=== PATIENT | male | born 1995 | race Hispanic/Latino ===

== ENCOUNTER 2019-07-13 14:12 | Emergency (ER) | payer SELFPAY ==
[2019-07-13] MEDS ORDERED: SODIUM CHLORIDE 0.9% 1000 ML 1,000 ML IV ONE (15:34)
[2019-07-13] MEDS ORDERED: NALOXONE 0.4 MG/1 ML INJ IV ONE (15:34)
[2019-07-13] MEDS ORDERED: ONDANSETRON 4 MG/2 ML INJ IV ONE (15:34)
--- NOTE | 2019-07-13 15:40 | Emergency Department Report ---
History of Present Illness - General Chief Complaint: Overdose Stated Complaint: OVERDOSE Time Seen by Provider: 07/13/19 15:30 Source: EMS Mode of arrival: Stretcher Limitations: No Limitations - History of Present Illness Initial Comments: Patient is 24-year-old male with history of substance abuse. Patient presented to the ER via EMS after family called stating that he became more drowsy. Patient admitted that he took heroin last night. Patient given Narcan by EMS and patient started waking up and answering questions appropriately. In the [facility] room patient still drowsy but is able to answer all questions appropriately. Pupils are pinpoint. Patient given another dose of Narcan and started on Narcan drip. Patient denied any suicidal ideation or suicidal attempt. He denied any visual or auditory hallucination. He stated that he j ust wanted to get high and he probably took extra dose. Patient immediately counseled about drug abuse. MD Complaint: accidental overdose -: This morning Intent: other (Want to get high) How Overdose Was Discovered: family/friend present Context: Accidental Overdose: wanted to get high Treatments Prior to Arrival: none - Related Data Allergies Allergy/AdvReac Type Severity Reaction Status Date / Time No Known Allergies Allergy Unverified 07/13/19 15:48 ED Review of Systems ROS: Stated complaint: OVERDOSE Other details as noted in HPI Comment: All other systems reviewed and negative Constitutional: denies: chills, fever Respiratory: denies: cough, shortness of breath Cardiovascular: denies: chest pain Gastrointestinal: denies: abdominal pain, nausea Musculoskeletal: denies: back pain ED Past Medical Hx - Social History Smoking Status: Current Every Day Smoker Substance Use Type: Alcohol ED Physical Exam - General Limitations: No Limitations General appearance: in no apparent distress, appears intoxicated, obtunded - Head Head exam: Present: atraumatic, normocephalic, normal inspection - Eye Eye exam: Present: normal appearance Pupils: Present: other (Pinpoint.) - ENT ENT exam: Present: normal exam, normal orophraynx, mucous membranes moist - Neck Neck exam: Present: normal inspection, full ROM. Absent: tenderness, meningismu s, lymphadenopathy, thyromegaly - Respiratory Respiratory exam: Present: normal lung sounds bilaterally - Cardiovascular Cardiovascular Exam: Present: regular rate, normal rhythm, normal heart sounds - GI/Abdominal GI/Abdominal exam: Present: soft, normal bowel sounds. Absent: distended, tenderness, guarding, rebound, rigid, organomegaly, mass, bruit, pulsatile mass, hernia - Extremities Exam Extremities exam: Present: normal inspection, full ROM, normal capillary refill. Absent: tenderness, pedal edema, calf tenderness - Back Exam Back exam: Present: normal inspection, full ROM. Absent: CVA tenderness (R), CVA tenderness (L), muscle spasm, paraspinal tenderness, vertebral tenderness - Neurological Exam Neurological exam: Present: alert, oriented X3, CN II-XII intact, normal gait, reflexes normal. Absent: motor sensory deficit - Psychiatric Psychiatric exam: Present: normal mood - Skin Skin exam: Present: warm, intact, normal color ED Course Vital Signs 07/13/19 07/13/19 07/13/19 15:00 15:16 15:20 Temperature 98.9 F Pulse Rate 70 Respiratory 10 L Rate Blood Pressure 109/62 109/62 Blood Pressure [Left] O2 Sat by Pulse 90 92 94 Oximetry 07/13/19 07/13/19 07/13/19 15:30 15:34 15:46 Temperature Pulse Rate Respiratory Rate Blood Pressure 120/69 120/69 Blood Pressure [Left] O2 Sat by Pulse 96 95 96 Oximetry 07/13/19 07/13/19 07/13/19 16:00 19:09 19:16 Temperature Pulse Rate Respiratory Rate Blood Pressure 115/67 129/63 129/63 Blood Pressure [Left] O2 Sat by Pulse 95 92 Oximetry 07/13/19 07/13/19 19:30 20:00 Temperature 98.2 F Pulse Rate 85 Respiratory 16 Rate Blood Pressure 115/67 Blood Pressure 129/85 [Left] O2 Sat by Pulse 92 100 Oximetry ED Medical Decision Making - Lab Data Result diagrams: 07/13/19 15:45 07/13/19 15:45 - Medical Decision Making Patient is 24-year-old male with history of substance abuse. Patient presented to the ER via EMS after family called stating that he became more drowsy. Patient admitted that he took heroin last night. Patient given Narcan by EMS and patient started waking up and answering questions appropriately. In the emergency room patient still drowsy but is able to answer all questions appropriately. Pupils are pinpoint. Patient given another dose of Narcan and started on Narcan drip. Patient denied any suicidal ideation or suicidal attempt. He denied any visual or auditory hallucination. He stated that he just wanted to get high and he probably took extra dose. Patient immediately counseled about drug abuse. Patient has been observed in the emergency room for approximately 2 hours after Narcan drip discontinued. Patient remained alert, oriented x3 and stated that he is ready to go home. Patient is calling his mother to pick him up. Critical care attestation.: If time is entered above; I have spent that time in minutes in the direct care of this critically ill patient, excluding procedure time. ED Disposition Clinical Impression: Accidental drug overdose, Heroin abuse Disposition: DC-01 TO HOME OR SELFCARE Is pt being admited?: No Condition: Stable Instructions: Narcotic Abuse (ED) Referrals: PRIMARY CARE, [Primary Care Provider] - 3-5 Days
[2019-07-13] MEDS ORDERED: NALOXONE 2 MG/2 ML 2 MG in SODIUM CHLORIDE 0.9% 500 ML 500 ML IV ONE (15:41)
[2019-07-13 16:07] LABS: Basophils # (Auto) 0.1 K/mm3 (0.0-0.1); Basophils % (Auto) 0.9 % (0.0-1.8); Eosinophils # (Auto) 0.6 K/mm3 (0.0-0.4); Eosinophils % (Auto) 5.3 % (0.0-4.3); Hematocrit 40.9 % (35.5-45.6); Hemoglobin 13.5 gm/dl (11.8-15.2); Lymphocytes # (Auto) 1.8 K/mm3 (1.2-5.4); Lymphocytes % (Auto) 16.3 % (13.4-35.0); Mean Corpuscular HGB Conc 33 % (32-34); Mean Corpuscular Volume 81 fl (84-94); Monocytes % (Auto) 9.4 % (0.0-7.3); Platelet Count 236 K/mm3 (140-440); Red Blood Count 5.03 M/mm3 (3.65-5.03); Red Cell Distribution Width 13.7 % (13.2-15.2)
[2019-07-13 16:28] LABS: Alanine Aminotransferase 45 units/L (7-56); Albumin 3.5 g/dL (3.9-5); BUN/Creatinine Ratio 11; Blood Urea Nitrogen 8 mg/dL (9-20); Calcium 8.4 mg/dL (8.4-10.2); Hemolysis Index 5
[2019-07-13] MEDS ORDERED: diphenhydrAMINE 50 MG/ML VIAL IV PRN (20:04)
[2019-07-13 20:20] LABS: Amphetamine Screen,Urine PRESUMPTIVE NEGATIVE; Benzodiazepines Screen,Urine PRESUMPTIVE NEGATIVE; Cannabinoid Screen,Urine PRESUMPTIVE NEGATIVE; Cocaine Screen,Urine PRESUMPTIVE NEGATIVE; Methadone Screen,Urine PRESUMPTIVE NEGATIVE
[2019-07-13 20:26] LABS: Bilirubin,Urine NEG (Negative); Blood,Urine NEG (Negative); Color,Urine Yellow (Yellow); Hyaline Casts,Urine 1 /LPF; Protein,Urine <15 mg/dL mg/dL (Negative); Urobilinogen,Urine < 2.0 mg/dL (<2.0)
[2019-07-13 20:31] LABS: Opiate Screen,Urine PRESUMPTIVE POSITIVE
[2019-07-13 21:52] VITALS: BP 122/71
== END 2019-07-13 22:39 | disposition home or self-care (01) ==
LOC: ED 14:12
DX: T65.91XA Toxic effect of unspecified substance, accidental (unintentional), initial encounter (principal); F15.10 Other stimulant abuse, uncomplicated; F17.200 Nicotine dependence, unspecified, uncomplicated; Y92.89 Other specified places as the place of occurrence of the external cause
CPT/HCPCS: 36415; 80053; 80307; 81001; 85025; 96365; 96375; 99284; J2310; J2405; J7030; J7040; 80320; G0480

== ENCOUNTER 2020-03-27 21:01 | Emergency (ER) | payer SELFPAY ==
--- NOTE | 2020-03-27 22:45 | XRay Report ---
CHEST 2 VIEWS INDICATION: left chestpain. COMPARISON: None FINDINGS: SUPPORT DEVICES: None. HEART: Within normal limits. LUNGS/PLEURA: Minimal hazy bibasilar airspace opacities with otherwise clear lungs. No effusion. No pneumothorax. ADDITIONAL FINDINGS: None. IMPRESSION: 1. Pulmonary findings as above. Signer Name: Jose R Pritchard MD Signed: 03/27/2020 10:41 PM Workstation Name: [id number]
[2020-03-28 00:14] LABS: Basophils # (Auto) 0.2 K/mm3 (0.0-0.1); Basophils % (Auto) 1.3 % (0.0-1.8); Eosinophils # (Auto) 0.9 K/mm3 (0.0-0.4); Eosinophils % (Auto) 7.4 % (0.0-4.3); Hematocrit 39.7 % (35.5-45.6); Hemoglobin 12.8 gm/dl (11.8-15.2); Lymphocytes # (Auto) 1.9 K/mm3 (1.2-5.4); Lymphocytes % (Auto) 15.8 % (13.4-35.0); Mean Corpuscular HGB Conc 32 % (32-34); Mean Corpuscular Volume 77 fl (84-94); Monocytes # (Auto) 0.9 K/mm3 (0.0-0.8); Monocytes % (Auto) 7.2 % (0.0-7.3); Platelet Count 329 K/mm3 (140-440); Red Blood Count 5.19 M/mm3 (3.65-5.03); Red Cell Distribution Width 13.4 % (13.2-15.2)
[2020-03-28 00:29] LABS: Alanine Aminotransferase 15 units/L (7-56); Albumin 3.7 g/dL (3.9-5); Blood Urea Nitrogen 5 mg/dL (9-20); Calcium 8.8 mg/dL (8.4-10.2); Hemolysis Index 2
[2020-03-28 00:34] LABS: BUN/Creatinine Ratio 7
[2020-03-28] MEDS ORDERED: cefTRIAXone/NS 1 GM/50 ML 1 GM/50 ML BAG IV ONE (04:12)
--- NOTE | 2020-03-28 04:22 | Emergency Department Report ---
ED General Adult HPI - General Chief complaint: Chest Pain Stated complaint: CHEST PAIN/COLD SX/DRUG ADDICTION/REHAB Time Seen by Provider: 03/28/20 04:05 Source: patient Mode of arrival: Ambulatory Limitations: No Limitations - History of Present Illness Initial comments: 25-year-old male patient presents with complaints of cough x2 to 3 weeks, now worsening with left-sided pain in his chest with coughing x1 week. He denies any hemoptysis or sputum production. Patient admits to being a smoker. No past medical history per patient. He denies any fever/chills/sweats, loss of taste/smell, nausea/vomiting/diarrhea/abdominal pain, or leg pain/swelling. He does admit to mild shortness of breath. Patient also requesting outpatient resources for heroin detox. - Related Data Previous Rx's Medication Instructions Recorded Last Taken Type Amoxicillin [Trimox CAP] 1,000 mg PO Q8H 10 Days #60 capsule 03/28/20 Unknown Rx Azithromycin [Zithromax Z-CHUY] 0 mg PO DAILY #6 tab 03/28/20 Unknown Rx Allergies Allergy/AdvReac Type Severity Reaction Status Date / Time No Known Allergies Allergy Unverified 07/13/19 15:48 ED Review of Systems ROS: Stated complaint: CHEST PAIN/COLD SX/DRUG ADDICTION/REHAB Other details as noted in HPI Constitutional: denies: chills, fever, malaise Respiratory: cough, shortness of breath Cardiovascular: as per HPI. denies: edema, syncope Endocrine: denies: excessive sweating Gastrointestinal: denies: abdominal pain, nausea Neurological: denies: headache Hematological/Lymphatic: denies: swollen glands ED Past Medical Hx - Past Medical History Previous Medical History?: Yes Additional medical history: GOUT - Surgical History Past Surgical History?: No - Social History Smoking Status: Former Smoker Substance Use Type: Heroin - Medications Home Medications: Home Medications Medication Instructions Recorded Confirmed Last Taken Type Amoxicillin [Trimox CAP] 1,000 mg PO Q8H 10 Days #60 capsule 03/28/20 Unknown Rx Azithromycin [Zithromax Z-CHUY] 0 mg PO DAILY #6 tab 03/28/20 Unknown Rx ED Physical Exam - General Limitations: No Limitations General appearance: alert, in no apparent distress - Head Head exam: Present: atraumatic, normocephalic - Eye Eye exam: Present: normal appearance. Absent: scleral icterus - Neck Neck exam: Present: normal inspection - Respiratory Respiratory exam: Present: wheezes, rhonchi. Absent: rales, stridor - Cardiovascular Cardiovascular Exam: Present: regular rate, normal rhythm. Absent: systolic murmur, diastolic murmur, rubs, gallop - GI/Abdominal GI/Abdominal exam: Present: soft. Absent: tenderness - Neurological Exam Neurological exam: Present: alert, oriented X3, normal gait - Psychiatric Psychiatric exam: Present: normal affect, normal mood - Skin Skin exam: Present: warm, dry, intact, normal color. Absent: rash, cyanosis, diaphoretic, pallor, ecchymosis ED Course Vital Signs 03/27/20 21:53 Temperature 98.6 F Pulse Rate 106 H Respiratory 20 Rate Blood Pressure 121/61 O2 Sat by Pulse 95 Oximetry ED Medical Decision Making - Lab Data Result diagrams: 03/27/20 23:46 03/27/20 23:46 Lab Results 03/27/20 03/27/20 03/27/20 Range/Units 23:46 23:46 23:46 WBC 11.9 H (4.5-11.0) K/mm3 RBC 5.19 H (3.65-5.03) M/mm3 Hgb 12.8 (11.8-15.2) gm/dl Hct 39.7 (35.5-45.6) % MCV 77 L (84-94) fl MCH 25 L (28-32) pg MCHC 32 (32-34) % RDW 13.4 (13.2-15.2) % Plt Count 329 (140-440) K/mm3 Lymph % (Auto) 15.8 (13.4-35.0) % Heard % (Auto) 7.2 (0.0-7.3) % Eos % (Auto) 7.4 H (0.0-4.3) % Baso % (Auto) 1.3 (0.0-1.8) % Lymph # (Auto) 1.9 (1.2-5.4) K/mm3 Heard # (Auto) 0.9 H (0.0-0.8) K/mm3 Eos # (Auto) 0.9 H (0.0-0.4) K/mm3 Baso # (Auto) 0.2 H (0.0-0.1) K/mm3 Seg Neutrophils % 68.3 (40.0-70.0) % Seg Neutrophils # 8.1 H (1.8-7.7) K/mm3 Sodium 137 (137-145) mmol/L Potassium 3.9 (3.6-5.0) mmol/L Chloride 99.3 (98-107) mmol/L Carbon Dioxide 25 (22-30) mmol/L Anion Gap 17 mmol/L BUN 5 L (9-20) mg/dL Creatinine 0.7 L (0.8-1.3) mg/dL Estimated GFR > 60 ml/min BUN/Creatinine Ratio 7 % Glucose 98 (75-100) mg/dL Lactic Acid 1.30 (0.7-2.0) mmol/L Calcium 8.8 (8.4-10.2) mg/dL Total Bilirubin 0.30 (0.1-1.2) mg/dL AST 22 (5-40) units/L ALT 15 (7-56) units/L Alkaline Phosphatase 76 (35-129) units/L Troponin T < 0.010 (0.00-0.029) ng/mL Total Protein 6.9 (6.3-8.2) g/dL Albumin 3.7 L (3.9-5) g/dL Albumin/Globulin Ratio 1.2 % - Radiology Data Radiology results: report reviewed CHEST 2 VIEWS INDICATION: left chestpain. COMPARISON: None FINDINGS: SUPPORT DEVICES: None. HEART: Within normal limits. LUNGS/PLEURA: Minimal hazy bibasilar airspace opacities with otherwise clear lungs. No effusion. No pneumothorax. ADDITIONAL FINDINGS: None. IMPRESSION: 1. Pulmonary findings as above. - Medical Decision Making 25-year-old male patient presents with complaints of cough x2 to 3 weeks, now worsening with left-sided pain in his chest with coughing x1 week. He denies any hemoptysis or sputum production. Patient admits to being a smoker. No past medical history per patient. He denies any fever/chills/sweats, loss of taste/smell, nausea/vomiting/diarrhea/abdominal pain, or leg pain/swelling. He does admit to mild shortness of breath. Patient also requesting outpatient resources for heroin detox. Diffuse rhonchi and wheezing noted on exam. Chest x-ray shows bilateral bibasilar airspace opacities. Will treat for pneumonia. Patient given 1 g of Rocephin IV here in ED and will discharge home with high-dose Amoxil and azithromycin. Referral given for primary care follow-up in 3 days. He is well-appearing, his vitals are normal, he is stable for discharge home. Strict return precautions were discussed in detail with patient who verbalizes understanding. Critical care attestation.: If time is entered above; I have spent that time in minutes in the direct care of this critically ill patient, excluding procedure time. ED Disposition Clinical Impression: Pneumonia Qualifiers: Pneumonia type: due to unspecified organism Laterality: bilateral Lung location: unspecified part of lung Qualified Code(s): J18.9 - Pneumonia, unspecified organism Disposition: - TO HOME OR SELFCARE Is pt being admited?: No Condition: Stable Instructions: Bacterial Pneumonia (ED), Community-Acquired Pneumonia, Adult Prescriptions: Amoxicillin [Trimox CAP] 1,000 mg PO Q8H 10 Days #60 capsule Azithromycin [Zithromax Z-CHUY] 0 mg PO DAILY #6 tab Referrals: BERNADETTE CAPONE MD [Primary Care Provider] - 2-3 Days
[2020-03-28] MEDS ORDERED: SODIUM CHLORIDE 0.9% 1000 ML 1,000 ML IV ONE (04:25)
[2020-03-28] MEDS ORDERED: ALBUTEROL 2.5 MG/3 ML NEBU IH ONE (04:27)
[2020-03-28] MEDS ORDERED: IPRATROPIUM 0.02% NEBU 2.5 ML IH ONE (04:27)
[2020-03-28 05:00] VITALS: BP 139/81
[2020-03-28] MEDS ORDERED: dexAMETHasone 20 MG/5 ML VIAL IV ONE (05:52)
== END 2020-03-28 07:35 | disposition home or self-care (01) ==
LOC: ED 21:01
DX: J18.9 Pneumonia, unspecified organism (principal); M10.9 Gout, unspecified; Z79.899 Other long term (current) drug therapy; Z87.891 Personal history of nicotine dependence
CPT/HCPCS: 36415; 71046; 80053; 82140; 84484; 85025; 93005; 94640; 96365; 96375; 99284; J0696; J1100; J7030; 94644

== ENCOUNTER 2020-06-15 16:16 | Emergency (ER) | payer SELFPAY | END 2020-06-15 17:45 | disposition left against medical advice (07) | LOC: ED 16:16 | DX: M25.561 Pain in right knee (principal); Z53.21 Procedure and treatment not carried out due to patient leaving prior to being seen by health care provider ==

== ENCOUNTER 2020-06-17 13:47 | Emergency (ER) | payer SELFPAY ==
[2020-06-17 14:46] VITALS: BP 103/68
--- NOTE | 2020-06-17 18:47 | Emergency Department Report ---
History of Present Illness - General Chief Complaint: Overdose Stated Complaint: OVERDOSE Time Seen by Provider: 06/17/20 14:09 Source: patient, EMS Mode of arrival: Stretcher Limitations: No Limitations - History of Present Illness Initial Comments: Chief complaint: Heroin overdose HPI: This is a 25-year-old male with history of heroin dependence, gout and anxiety who presents after being resuscitated by first responders for heroin overdose. Patient admitted to snorting heroin. Patient was staying at a hotel. Central Supply Technician found patient to be unresponsive. Paramedics discovered patient with facial and water. He did not appear to be breathing spontaneously. After being pulled out of water he started to cough. He received Narcan. He became alert and oriented shortly after naloxone administration. Patient has been in his normal state of health. He has had previous heroin overdoses. He has attempted a drug rehabilitation program before. He denies suicidal homicidal ideation. He denies a desire to . The only desire to get high. His mother is supportive. MD Complaint: accidental overdose -: This afternoon How Overdose Was Discovered: other (Central Supply Technician at a hotel room discovered patient to be unresponsive) Context: Accidental Overdose: wanted to get high Associated Symptoms: other (Currently symptom-free) Treatments Prior to Arrival: narcan (Patient received Narcan prior to arrival) - Related Data Previous Rx's Medication Instructions Recorded Last Taken Type Amoxicillin [Trimox CAP] 1,000 mg PO Q8H 10 Days #60 capsule 03/28/20 Unknown Rx Azithromycin [Zithromax Z-CHUY] 0 mg PO DAILY #6 tab 03/28/20 Unknown Rx Allergies Allergy/AdvReac Type Severity Reaction Status Date / Time No Known Allergies Allergy Unverified 07/13/19 15:48 ED Review of Systems ROS: Stated complaint: OVERDOSE Other details as noted in HPI Comment: All other systems reviewed and negative Constitutional: denies: fever, malaise Respiratory: denies: cough, shortness of breath Cardiovascular: denies: chest pain, palpitations, dyspnea on exertion Gastrointestinal: denies: nausea, vomiting Psychiatric: denies: depression, auditory hallucinations, visual hallucinations, homicidal thoughts, suicidal thoughts ED Past Medical Hx - Past Medical History Previous Medical History?: Yes Additional medical history: GOUT, anxiety, opioid dependence - Social History Smoking Status: Current Every Day Smoker Substance Use Type: Alcohol, Heroin - Medications Home Medications: Home Medications Medication Instructions Recorded Confirmed Last Taken Type Amoxicillin [Trimox CAP] 1,000 mg PO Q8H 10 Days #60 capsule 03/28/20 Unknown Rx Azithromycin [Zithromax Z-CHUY] 0 mg PO DAILY #6 tab 03/28/20 Unknown Rx ED Physical Exam - General Limitations: No Limitations General appearance: alert, in no apparent distress, other (GCS 15, cooperative) - Head Head exam: Present: atraumatic, normocephalic - Eye Eye exam: Present: normal appearance - ENT ENT exam: Present: mucous membranes moist - Neck Neck exam: Present: normal inspection - Respiratory Respiratory exam: Present: normal lung sounds bilaterally. Absent: respiratory distress, wheezes, rales, rhonchi - Cardiovascular Cardiovascular Exam: Present: regular rate, normal rhythm, normal heart sounds. Absent: systolic murmur, diastolic murmur, rubs, gallop - GI/Abdominal GI/Abdominal exam: Present: soft, normal bowel sounds. Absent: distended, tenderness, guarding, rebound - Rectal Rectal exam: Present: deferred - Extremities Exam Extremities exam: Present: normal inspection - Back Exam Back exam: Present: normal inspection - Neurological Exam Neurological exam: Present: alert, oriented X3 - Psychiatric Psychiatric exam: Present: normal affect, normal mood, other (Jovial articulate) . Absent: homicidal ideation, suicidal ideation - Skin Skin exam: Present: warm, dry, intact, normal color. Absent: rash ED Course Vital Signs 06/17/20 14:29 Pulse Rate 88 Respiratory 16 Rate Blood Pressure 103/68 O2 Sat by Pulse 93 Oximetry ED Medical Decision Making - Medical Decision Making Accidental heroin overdose: Patient denies suicidal ideation. Patient was offered outpatient rehabilitation programs. I had extensive witness conversation with medical staff member at the bedside. Patient discharged home after 4 hours observation. Critical care attestation.: If time is entered above; I have spent that time in minutes in the direct care of this critically ill patient, excluding procedure time. ED Disposition Clinical Impression: Accidental heroin overdose Disposition: DC-01 TO HOME OR SELFCARE Is pt being admited?: No Does the pt Need Aspirin: No Condition: Stable Instructions: Opioid Overdose Referrals: [facility] [Outside] - 3-5 Days
== END 2020-06-17 18:32 | disposition home or self-care (01) ==
LOC: ED 13:47
DX: T40.1X1A Poisoning by heroin, accidental (unintentional), initial encounter (principal); F41.9 Anxiety disorder, unspecified; F17.200 Nicotine dependence, unspecified, uncomplicated; Z79.899 Other long term (current) drug therapy; Y92.89 Other specified places as the place of occurrence of the external cause
CPT/HCPCS: 99283